=== PATIENT | female | born 1970 | race Two or more races ===

== ENCOUNTER 2018-05-04 11:43 | Emergency (ER) | payer SELFPAY ==
[~2018-05-04] VITALS: Ht 167.6 cm; Wt 65.3 kg
[2018-05-04] MEDS ORDERED: SODIUM CHLORIDE 0.9% 1,000 ML IV ONE (12:24)
[2018-05-04 12:53] VITALS: BP 113/36
[2018-05-04] MEDS ORDERED: InsuLIN REG 1unit/0.01ml Soln (100units/ml) IV ONE (13:00)
[2018-05-04 13:23] LABS: Basophils # (auto) 0 uL; Basophils % (auto) 0.3 % (0.0-2.0); Eosinophils # (auto) 0.1 uL; Eosinophils % (auto) 0.9 % (0.0-7.0); Hematocrit 41.4 % (36.0-46.0); Hemoglobin 13.6 g/dL (12.2-16.2); Lymphocytes # (auto) 0.8 uL; Lymphocytes % (auto) 7.7 % (10.0-50.0); Mean Corpuscular Hemoglobin 30.7 pg (28.0-32.0); Mean Corpuscular Hgb Conc. 32.7 g/dL (32.0-36.0); Mean Corpuscular Volume 93.9 fL (80.0-100.0); Monocytes # (auto) 0.7 uL; Monocytes % (auto) 6.9 % (0.0-12.0); Neutrophils # (auto) 8.5 uL; Neutrophils % (auto) 84.2 % (37.0-80.0); Platelet Count (auto) 269 10^3/uL (140-450); Red Blood Cells 4.41 10^6/uL (4.0-5.20); Red Cell Distribution Width 12.6 % (11.8-14.3); White Blood Cell 10.1 10^3/uL (4.4-10.8)
[2018-05-04 13:34] LABS: Alanine Aminotransferase 19 U/L (13-56); Aspartate Aminotransferase 21 U/L (15-37); Bilirubin, Total 0.3 mg/dL (0.2-1.0); GFR African American 53 mL/min; GFR Non-African American 44 mL/min; Total Protein 7.2 g/dL (6.4-8.2)
[2018-05-04 13:45] LABS: Chloride 99 mmol/L (98-107); Potassium 4.3 mmol/L (3.5-5.1); Sodium 135 mmol/L (136-145)
[2018-05-04 13:46] LABS: Albumin 2.7 g/dL (3.4-5.0); Alkaline Phosphatase 128 U/L (45-117); Anion Gap 13 (5-15); BUN/Creatinine Ratio 19.4; Blood Urea Nitrogen 27 mg/dL (7-18); Calcium 8.5 mg/dL (8.5-10.1); Carbon Dioxide 23 mmol/L (21-32)
[2018-05-04 13:48] LABS: Glucose 639 mg/dL (74-106)
[2018-05-04] MEDS ORDERED: SODIUM CHLORIDE 0.9% 1,000 ML IV SCH ×4 (13:48→19:48)
[2018-05-04] MEDS ORDERED: InsuLIN R (HUMAN) 100 UNITS in SODIUM CHL 0.9% 99 ML IV SCH (13:48)
[2018-05-04] MEDS ORDERED: DEXTROSE (50%) 50ML SYRG IV PRN ×2 (14:00→14:15)
[2018-05-04] MEDS ORDERED: MORPHINE SULFATE 4 MG/ML SYR/VIAL IV PRN (14:15)
[2018-05-04] MEDS ORDERED: NITROGLYCERIN 0.4 MG SL TAB SL PRN (14:15)
[2018-05-04] MEDS ORDERED: INSULIN LANTUS (GLARGINE) 1 /0.01ml (100units/ml) SC ONE (14:30)
[2018-05-04 14:43] LABS: Magnesium 2.2 mg/dL (1.6-2.6)
[2018-05-04 14:45] LABS: Phosphorus 5.2 mg/dL (2.5-4.90)
[2018-05-04] MEDS ORDERED: ACCU-CHEK COMFORT CURVE STRIP VI SCH ×2 (15:00→16:00)
[2018-05-04] MEDS ORDERED: InsuLIN REG 1unit/0.01ml Soln (100units/ml) SC SCH (16:00)
[2018-05-04] MEDS ORDERED: INSULIN LANTUS (GLARGINE) 1 /0.01ml (100units/ml) SC SCH (22:00)
== END 2018-05-04 14:30 | disposition left against medical advice (07) ==
LOC: ER 11:43 → EDBD 11:43 → TELE 14:00 → UNDOADMIN 14:00
DX: R55 Syncope and collapse (principal); E11.65 Type 2 diabetes mellitus with hyperglycemia
CPT/HCPCS: 36415; 70450; 80053; 82010; 82962; 83036; 83735; 83930; 84100; 84484; 84702; 85025; 93005; 96361; 96374; 99284; J1815; J7030